=== PATIENT | male | born 1990 | race Caucasian/White ===

== ENCOUNTER → 2023-08-31 | Emergency (ER) | payer BC ==
[~2023-08-31] VITALS: Ht 185.4 cm; Wt 124.7 kg
[~2023-08-31] MED LIST: KETOROLAC TROMETHAMINE INJ 60 MG/2 ML VIAL IM ONE
[2023-08-31] MEDS: KETOROLAC TROMETHAMINE INJ 60 MG/2 ML VIAL IM ONE (11:38)
[2023-08-31 12:12] VITALS: BP 136/70; TEMP 98; O2SAT 98
== END | disposition home or self-care (01) ==
LOC: ER 11:08
DX: S93.401A Sprain of unspecified ligament of right ankle, initial encounter (principal); X50.1XXA Overexertion from prolonged static or awkward postures, initial encounter; Y93.89 Activity, other specified; Y92.89 Other specified places as the place of occurrence of the external cause; Y99.8 Other external cause status
CPT/HCPCS: 99283; 96372; 73610; J1885